=== PATIENT | male | born 1980 | race Caucasian/White ===

== ENCOUNTER 2017-07-01 16:44 | Emergency (ER) | payer SELFPAY ==
[~2017-07-01] VITALS: Ht 188 cm; Wt 112.0 kg
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
[2017-07-01 16:56] VITALS: BP 162/96; PULSE 126; RESP 16; TEMP 97.9; O2SAT 97
[2017-07-01] MEDS ORDERED: TETANUS/DIPHTHERIA TOXOID ADULT 0.5 ML VIAL IM ONE (17:00)
--- NOTE | 2017-07-01 17:45 | RADRPT ---
EXAM DATE/TIME: 07/01/2017 17:17 [place] COMPARISON: No previous studies available for comparison. INDICATIONS : Pain post fall. MEDICAL HISTORY : None. SURGICAL HISTORY : None. ENCOUNTER: Initial ACUITY: 3 days PAIN SCORE: 5/10 LOCATION: Left Foot. FINDINGS: Three view examination of the left foot demonstrates no dislocation, or fracture. There is some soft tissue swelling of the foot. The tarsal bones appear intact. The interphalangeal and metatarsophala ngeal joints are intact. The calcaneus is intact. Bony mineralization is normal. CONCLUSION: Soft tissue swelling. No acute fracture or joint dislocation. Victor Hugo Grier MD on July 01, 2017 at 17:42 Board Certified Radiologist. This report was verified electronically.
[2017-07-01] MEDS ORDERED: NAPR500 PO (17:53)
== END 2017-07-01 18:30 | disposition home or self-care (01) ==
LOC: NEPE 16:44
DX: S90.32XA Contusion of left foot, initial encounter (principal); V29.9XXA Motorcycle rider (driver) (passenger) injured in unspecified traffic accident, initial encounter; Z23 Encounter for immunization
CPT/HCPCS: 73630; 90471; 90714